=== PATIENT | male | born 1975 | race Caucasian/White ===

== ENCOUNTER 2017-12-07 09:52 | Emergency (ER) | payer OTHER, SELFPAY ==
[2017-12-07 09:55] VITALS: BP 144/92; PULSE 80; RESP 16; TEMP 36.7; O2SAT 100; BMI 24.5
--- NOTE | 2017-12-07 10:14 | ED.DCSUM_ITS ---
- ER Visit Summary Date of Service: 12/07/17 Chief Complaint: Left face/gum pain History of Present Illness: The patient is a 42 M presenting with swelling and pain on the left lower side of his face and under his tongue/buccal mucosa for the past week after eating. It basically resolves a few hours after eating and only occurs when he eats. He is still able to swallow without difficulty. No sore throat and no fever. No chest pain or neck pain. No fevers. No recent travel. Physical Examination: Vitals are within normal limits. Afebrile here. Not in distress. He has no objective swelling on his face. Submandibular tissues and anterior neck structures are soft. Voice is normal. There is no tongue elevation. He does have mild tenderness over the parotid gland region and over the buccal mucosa in that area. Handling his secretions without difficulty. Exam is normal for age. There is no rash on his face. No evidence of shingles. Test Results: None performed Emergency Department Course and Treatment: His history exam appears consistent with sialoadenitis. He has no obvious swelling at this time but he does get swelling every time he eats which argues against an abscess or other process. Given his well appearance, I do not feel imaging is indicated. I will treat him with Augmentin and he was also instructed on lozenges and warm compresses. He will follow-up with ENT and return here if worse. Treatment Plan: Oral Augmentin and follow-up Disposition: Home stable condition Impression: Initial encounter sialadenitis This note was generated with [employer] dictation software. It may contain incorrect words, spelling, and punctuation that were not noted in review of the chart prior to signing ED Disposition - Plan for ED Patient: Disposition: Home or Assisted Living Chief Complaint: Other, Pain/Inj Instructions: ED Sublingual Gland Obstruction Prescriptions: Amoxicillin/Potassium Clav [Augmentin 875-125 Tablet] 1 each PO BID #14 tablet Referrals: Fer Lopez MD [STAFF PHYSICIAN] - As soon as possible
[2017-12-07] MEDS: Amox/Clavulanate 875 MG Tablet PO (10:46)
== END 2017-12-07 10:49 | disposition home or self-care (01) ==
PROVIDERS: Emergency Provider Emergency Medicine
DX: K11.20 Sialoadenitis, unspecified (principal); R56.9 Unspecified convulsions; Z79.899 Other long term (current) drug therapy
CPT/HCPCS: 99283